=== PATIENT | female | born 1945 | race Caucasian/White ===

== ENCOUNTER 2021-04-14 11:11 | Day surgery (SDC) | payer OTHER ==
[2021-04-14] MEDS ORDERED: FERRIC CARBOXYMALTOSE 750 MG in SODIUM CHLORIDE 250 ML IVPB ONE (12:00)
[2021-04-14 12:37] VITALS: TEMP 98
[2021-04-14 13:35] VITALS: BP 116/67; PULSE 75
== END 2021-04-14 13:36 | disposition home or self-care (01) ==
LOC: FINFUSION 11:11 → FM/S 11:17 → FINFUSION 13:36
PROVIDERS: ATTEND Family Medicine
PROC: 3E033GC Introduction of Other Therapeutic Substance into Peripheral Vein, Percutaneous Approach (ICD-10-PCS; principal; 2021-04-14)
DX: D50.9 Iron deficiency anemia, unspecified (principal); J44.9 Chronic obstructive pulmonary disease, unspecified; F41.1 Generalized anxiety disorder; E78.5 Hyperlipidemia, unspecified; D51.9 Vitamin B12 deficiency anemia, unspecified; E66.9 Obesity, unspecified; Z68.37 Body mass index [BMI] 37.0-37.9, adult
CPT/HCPCS: 96365; J1439

== ENCOUNTER 2021-04-21 11:43 | Day surgery (SDC) | payer OTHER ==
[2021-04-21] MEDS ORDERED: FERRIC CARBOXYMALTOSE 750 MG in SODIUM CHLORIDE 250 ML IVPB ONE (12:00)
[2021-04-21 12:10] VITALS: BP 149/60; PULSE 87; TEMP 98.6
== END 2021-04-21 14:37 | disposition home or self-care (01) ==
LOC: FINFUSION 11:43 → FM/S 11:49 → FINFUSION 14:37
PROVIDERS: ATTEND Family Medicine
PROC: 3E033GC Introduction of Other Therapeutic Substance into Peripheral Vein, Percutaneous Approach (ICD-10-PCS; principal; 2021-04-21)
DX: D50.9 Iron deficiency anemia, unspecified (principal)
CPT/HCPCS: 96365; J1439